=== PATIENT | male | born 1980 | race Caucasian/White ===

== ENCOUNTER 2023-08-15 14:35 | Emergency (ER) | payer OTHER, SELFPAY ==
[2023-08-15 14:42] VITALS: BP 149/100
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
[2023-08-15 18:05] VITALS: BP 132/82
[2023-08-15] MEDS: MOTRIN 600 MG PO (18:12)
[2023-08-15] MEDS: ADACEL 0.5 ML IM (18:13)
[2023-08-15 18:58] VITALS: BP 132/82
== END 2023-08-15 18:59 | disposition home or self-care (01) ==
LOC: EMR 14:35
PROVIDERS: EMERGENCY PHYSICIAN Emergency Medicine
DX: S00.83XA Contusion of other part of head, initial encounter (principal); S09.90XA Unspecified injury of head, initial encounter; S02.85XA Fracture of orbit, unspecified, initial encounter for closed fracture; S82.402A Unspecified fracture of shaft of left fibula, initial encounter for closed fracture; S93.402A Sprain of unspecified ligament of left ankle, initial encounter; S00.81XA Abrasion of other part of head, initial encounter; V19.9XXA Pedal cyclist (driver) (passenger) injured in unspecified traffic accident, initial encounter; Z23 Encounter for immunization; M25.562 Pain in left knee; F17.200 Nicotine dependence, unspecified, uncomplicated
CPT/HCPCS: 99284; 90471; 70450; 70486; 73564; 73610; 90715

== ENCOUNTER 2024-03-21 12:22 | Emergency (ER) | payer OTHER, SELFPAY ==
[2024-03-21 12:25] VITALS: BP 144/89
--- NOTE | 2024-03-21 13:43 | ED.GENMED ---
History of Present Illness
<Juvenal Klein PA-C - Last Filed: 03/21/24 13:47>
General
Chief Complaint: Eye Problems
Source: patient
Time Seen by Provider: 03/21/24 13:10
History of Present Illness
History of Present Illness:
43-year-old male presents with left eye discomfort. He accidentally put crazy glue in his left eye instead of his normal eyedrops. This happened last evening. He feels as though there is a large piece floating around. This is painful. He notes
light sensitivity. No other complaints
Past History
<Juvenal Klein PA-C - Last Filed: 03/21/24 13:47>
Past History
ED Past Medical History: None
ED Past Surgical History: None
Social History
Tobacco: Smoker
Alcohol: Daily
Personal: Single
Living: with family
Employment: Not employed
Phy Exam
<Juvenal Klein PA-C - Last Filed: 03/21/24 13:47>
Physical Exam
Physical Exam:
General: Well-appearing male no acute distress
HEENT: Normocephalic atraumatic left eye scleral injection. There is a large loose foreign body over the superior aspect of the eye tucked underneath the superior eyelid. This was easily removed with a pair forceps. Further examination of
fluorescein stain and a slit lamp demonstrates increased stain uptake overlying the lower half of the cornea that is diffuse in nature. This does not appear to be any further clue however this does appear to be corneal damage. The pupils equal and
round reactive.
Skin: Surrounding skin is without erythema
Course
<ESTRADA Lyons Last Filed: 03/21/24 13:47>
Orders/Labs/Results
Orders:
Orders
03/21/24 13:36
Erythromycin (Ilotycin) [Erythromycin 0.5% Ophthalmic Ointment] See Dose Instructions OPHTH NOW STA
Vital Signs
Initial and Last Documented VS:
Initial Vital Signs
Temp Pulse Resp BP Pulse Ox
98.7 F 92 18 144/89 97
03/21/24 12:25 03/21/24 12:25 03/21/24 12:25 03/21/24 12:25 03/21/24 12:25
Last Documented Vital Signs
Temp Pulse Resp BP Pulse Ox
98.7 F 92 18 144/89 97
03/21/24 12:25 03/21/24 12:25 03/21/24 12:25 03/21/24 12:25 03/21/24 12:25
<Niraj Huffman DO - Last Filed: 03/21/24 14:17>
Orders/Labs/Results
Orders:
Orders
03/21/24 13:36
Erythromycin (Ilotycin) [Erythromycin 0.5% Ophthalmic Ointment] See Dose Instructions OPHTH NOW STA
Vital Signs
Initial and Last Documented VS:
Initial Vital Signs
Temp Pulse Resp BP Pulse Ox
98.7 F 92 18 144/89 97
03/21/24 12:25 03/21/24 12:25 03/21/24 12:25 03/21/24 12:25 03/21/24 12:25
Last Documented Vital Signs
Temp Pulse Resp BP Pulse Ox
98.7 F 92 18 144/89 97
03/21/24 12:25 03/21/24 12:25 03/21/24 12:25 03/21/24 12:25 03/21/24 12:25
<Juvenal Klein PA-C - Last Filed: 03/21/24 13:47>
*Critical Care Note
Total Time (30-74mins, 75-104mins- exclusive of procedures): Not Applicable
<Juvenal Klein PA-C - Last Filed: 03/21/24 13:47>
Update Note
Update Note:
: Eye foreign body easily removed with forceps. I suspect damage to the cornea secondary to the glue that was in the eye. He was started on erythromycin ointment. Discussed with ophthalmology, Dr. Fatima he will see him in his office at 4 PM
today
ED Attending Note
<Juvenal Klein PA-C - Last Filed: 03/21/24 13:47>
-
Portions of this chart may have been created with voice recognition software.� Occasional wrong word or��sound alike� substitutions may have occurred due to the inherent limitations of voice recognition software.
<Niraj Huffman DO - Last Filed: 03/21/24 14:17>
ED Attending Note
I performed the substantive portion of visit, reviewed & personally made and approve the management plan that is documented in note by myself or PATRICIA.: Yes
Discharge Plan
Departure
Patient Disposition: Home (Routine Discharge)
Date of Disposition: 03/21/24
Time of Disposition: 13:46
Patient with high blood pressure during this ER visit?: No
Discharge Problem:
Eye foreign body
Prescriptions:
No Action
No Current Medications
Referrals:
Jose Matthews MD [Active] -
Jared Lora DO [Family Provider] -
Activity Restrictions/Additional Instructions:
Please see Dr. Matthews, the commercial fishing vessel operator at 4 PM.
Interventions
Interventions:
*Risk Screen - Suicide Last Done: 03/21/24 12:25
*General Assessment Last Done: 03/21/24 12:25
*Neglect/Abuse Screening Last Done: 03/21/24 12:25
Discharge Date and Time
Print Language: ROMANSH
[2024-03-21] MEDS: ERYTHROMYCIN 0.5% OPHTHALMIC OINTMENT 1 APPLIC OPHTH (13:44)
== END 2024-03-21 14:05 | disposition home or self-care (01) ==
LOC: EMR 12:22
PROVIDERS: EMERGENCY PHYSICIAN Emergency Medicine; FAMILY PHYSICIAN Psychiatry & Neurology Neurology
DX: T15.82XA Foreign body in other and multiple parts of external eye, left eye, initial encounter (principal); W44.8XXA Other foreign body entering into or through a natural orifice, initial encounter
CPT/HCPCS: 99283